=== PATIENT | male | born 1955 | race Caucasian/White ===

== ENCOUNTER 2021-07-09 11:43 | Emergency (ER) | payer OTHER ==
[2021-07-09 12:47] LABS: BASOPHIL 0.5 % (0-2); EOSINOPHIL 0.5 % (0-7); HCT 40.6 % (42.0-52.0); HGB 13.6 g/dl (13.2-18.0); LYMPHOCYTE 18.1 % (15-48); MCH 29.4 pg (25.0-31.0); MCHC 33.5 g/dL (32.0-36.0); MCV 87.7 fL (78.0-100.0); MONOCYTE 7.9 % (0-12); NEUTROPHIL 72.7 % (41-80); NRBC 0; PLT 212 K/uL (150-400); RBC 4.63 M/uL (4.70-6.00); RDW 12.3 % (11.5-14.0); WBC 5.8 K/uL (4.0-10.5)
[2021-07-09 13:08] LABS: BILIRUBIN - TOTAL 0.5 mg/dL (0.2-1.0); BUN/CREAT RATIO (CALC) 20.6 RATIO; CREATININE 1.07 mg/dL (0.67-1.17); GLOBULIN (CALCULATION) 3.3 g/dL; TOTAL PROTEIN 7.3 g/dL (6.4-8.2)
== END 2021-07-09 14:02 | disposition home or self-care (01) ==
LOC: FER 11:43
PROVIDERS: Emergency Medicine
DX: R42 Dizziness and giddiness (principal); I10 Essential (primary) hypertension; Z87.891 Personal history of nicotine dependence
CPT/HCPCS: 36415; 70450; 71045; 80053; 84484; 85025; 93005